=== PATIENT | male | born 1970 | race Two or more races ===

== ENCOUNTER 2017-04-02 10:26 | Emergency (ER) | payer MEDICARE ==
[~2017-04-02] VITALS: Ht 172.7 cm; Wt 85.6 kg
[2017-04-02] MEDS ORDERED: ALBUTEROL/IPRATROPIUM 2.5MG/0.5MG, 3 ML NPPB ONE (13:00)
[2017-04-02] MEDS ORDERED: SODIUM CHLORIDE FLUSH 10ML SYR IVF ONE (13:00)
[2017-04-02] MEDS ORDERED: SODIUM CHLORIDE 0.9% 1,000ML IVBOLUS ONE (13:00)
[2017-04-02 13:17] LABS: BASOPHILS # (AUTO) 0.06 x10^3/uL (0-0.1); BASOPHILS % (AUTO) 1 % (0-1); EOSINOPHILS # (AUTO) 0.18 x10^3/uL (0-0.4); EOSINOPHILS % (AUTO) 3 % (1-7); LYMPHOCYTES # (AUTO) 1.75 x10^3/uL (1-3.4); LYMPHOCYTES % (AUTO) 25 % (22-44); MD NO; MEAN CORPUSCULAR HEMOGLOBIN 31.6 pg (27.5-34.5); MEAN CORPUSCULAR HGB CONC 34.2 g/dL (33.2-36.2); MEAN CORPUSCULAR VOLUME 92.5 fL (81-97); MEAN PLATELET VOLUME 6.9 fL (7.4-10.4); MONOCYTES # (AUTO) 0.43 x10^3/uL (0.2-0.8); MONOCYTES % (AUTO) 6 % (2-9); NEUTROPHILS # (AUTO) 4.74 x10^3/uL (1.8-6.8); NEUTROPHILS % (AUTO) 66 % (42-75); PLATELET COUNT 561 x10^3/uL (130-400); RED BLOOD COUNT 4.11 x10^6/uL (4.38-5.82); RED CELL DISTRIBUTION WIDTH 13.1 % (9.4-14.8)
[2017-04-02 13:29] LABS: ALANINE AMINOTRANSFERASE 108 U/L (12-78); ALBUMIN 2.5 g/dL (3.4-5.0); ANION GAP 8 mmol/L (5-15); CALCIUM 8.6 mg/dL (8.5-10.1); CHLORIDE 101 mmol/L (98-107); CREATININE 0.72 mg/dL (0.7-1.3)
[2017-04-02 13:31] LABS: ALKALINE PHOSPHATASE 56 U/L (45-117); BILIRUBIN,TOTAL 0.9 mg/dL (0.2-1.0); TOTAL PROTEIN 7.7 g/dL (6.4-8.2)
[2017-04-02] MEDS ORDERED: ALBUTEROL/IPRATROPIUM 2.5MG/0.5MG, 3 ML ONE (14:03)
[2017-04-02 14:16] LABS: RAPID INFLUENZA A Negative (Negative); RAPID INFLUENZA B Negative (Negative)
[2017-04-02 14:20] VITALS: BP 151/96
== END 2017-04-02 15:57 | disposition home or self-care (01) ==
LOC: ED 14:12
DX: J98.01 Acute bronchospasm (principal); J45.909 Unspecified asthma, uncomplicated; E11.9 Type 2 diabetes mellitus without complications
CPT/HCPCS: 36415; 71010; 80053; 85025; 87400; 93005; 96360; 96361; 99285; J7030

== ENCOUNTER 2017-05-19 06:09 | Emergency (ER) | payer MEDICARE ==
[~2017-05-19] VITALS: Ht 172.7 cm; Wt 86.9 kg
[2017-05-19] MEDS ORDERED: INSU100C5 SQ-INSULIN (06:53)
[2017-05-19 07:25] LABS: BASOPHILS # (AUTO) 0.04 x10^3/uL (0-0.1); BASOPHILS % (AUTO) 1 % (0-1); EOSINOPHILS # (AUTO) 0.25 x10^3/uL (0-0.4); EOSINOPHILS % (AUTO) 4 % (1-7); LYMPHOCYTES # (AUTO) 1.43 x10^3/uL (1-3.4); LYMPHOCYTES % (AUTO) 24 % (22-44); MD NO; MEAN CORPUSCULAR HEMOGLOBIN 32.1 pg (27.5-34.5); MEAN CORPUSCULAR HGB CONC 34.6 g/dL (33.2-36.2); MEAN CORPUSCULAR VOLUME 92.9 fL (81-97); MEAN PLATELET VOLUME 8.2 fL (7.4-10.4); MONOCYTES # (AUTO) 0.35 x10^3/uL (0.2-0.8); MONOCYTES % (AUTO) 6 % (2-9); NEUTROPHILS # (AUTO) 3.89 x10^3/uL (1.8-6.8); NEUTROPHILS % (AUTO) 65 % (42-75); PLATELET COUNT 239 x10^3/uL (130-400); RED CELL DISTRIBUTION WIDTH 14.2 % (9.4-14.8)
[2017-05-19 07:26] LABS: ANION GAP 12 mmol/L (5-15); CALCIUM 8.1 mg/dL (8.5-10.1); CHLORIDE 99 mmol/L (98-107); CREATININE 0.82 mg/dL (0.7-1.3)
[2017-05-19 07:27] LABS: ALANINE AMINOTRANSFERASE 32 U/L (12-78); ALBUMIN 3.2 g/dL (3.4-5.0)
[2017-05-19 07:29] LABS: ALKALINE PHOSPHATASE 62 U/L (45-117); BILIRUBIN,TOTAL 0.6 mg/dL (0.2-1.0); TOTAL PROTEIN 8.3 g/dL (6.4-8.2)
[2017-05-19] MEDS ORDERED: SODIUM CHLORIDE FLUSH 10ML SYR IVF ONE (07:30)
[2017-05-19] MEDS ORDERED: SODIUM CHLORIDE 0.9% 1,000ML IVBOLUS ONE (07:30)
[2017-05-19 08:16] LABS: MICROSCOPIC AUTO
[2017-05-19 08:18] LABS: ACETONE, SERUM Trace (10mg/dL) mg/dL (Negative)
[2017-05-19 08:25] LABS: CULTURE INDICATED? NO
[2017-05-19 09:31] VITALS: BP 148/98
== END 2017-05-19 10:33 | disposition home or self-care (01) ==
LOC: ED 07:22
DX: E10.65 Type 1 diabetes mellitus with hyperglycemia (principal); F10.220 Alcohol dependence with intoxication, uncomplicated; K85.90 Acute pancreatitis without necrosis or infection, unspecified; F17.210 Nicotine dependence, cigarettes, uncomplicated; J45.909 Unspecified asthma, uncomplicated; R82.99 Other abnormal findings in urine
CPT/HCPCS: 36415; 80053; 80307; 81001; 82010; 82800; 82962; 83690; 85025; 87086; 93005; 96360; 99285; J7030

== ENCOUNTER 2017-06-11 22:50 | Emergency (ER) | payer MEDICARE ==
[~2017-06-11] VITALS: Ht 172.7 cm; Wt 86.0 kg
[~2017-06-11 22:50] MED LIST: INSU100C5 SQ-INSULIN
[2017-06-11 23:12] LABS: PH, VENOUS 7.426 pH (7.320-7.420)
[2017-06-11 23:18] LABS: BASOPHILS % (AUTO) 2 % (0-1); EOSINOPHILS # (AUTO) 0.33 x10^3/uL (0-0.4); EOSINOPHILS % (AUTO) 8 % (1-7); LYMPHOCYTES # (AUTO) 1.79 x10^3/uL (1-3.4); LYMPHOCYTES % (AUTO) 43 % (22-44); MD NO; MEAN CORPUSCULAR HEMOGLOBIN 32.6 pg (27.5-34.5); MEAN CORPUSCULAR HGB CONC 34.3 g/dL (33.2-36.2); MEAN CORPUSCULAR VOLUME 95.1 fL (81-97); MONOCYTES # (AUTO) 0.36 x10^3/uL (0.2-0.8); MONOCYTES % (AUTO) 9 % (2-9); NEUTROPHILS # (AUTO) 1.58 x10^3/uL (1.8-6.8); NEUTROPHILS % (AUTO) 38 % (42-75); PLATELET COUNT 213 x10^3/uL (130-400); RED BLOOD COUNT 4.09 x10^6/uL (4.38-5.82); RED CELL DISTRIBUTION WIDTH 14.9 % (9.4-14.8)
[2017-06-11 23:22] LABS: ACETONE, SERUM Small (20mg/dL) mg/dL (Negative); INTERNATIONAL NORMALIZED RATIO 1.08 (0.93-1.1); PROTHROMBIN TIME 11.2 Seconds (9.6-11.5)
[2017-06-11 23:24] LABS: ALANINE AMINOTRANSFERASE 52 U/L (12-78); ALBUMIN 3.1 g/dL (3.4-5.0); ANION GAP 12 mmol/L (5-15); CALCIUM 8.1 mg/dL (8.5-10.1); CHLORIDE 100 mmol/L (98-107); CREATININE 0.83 mg/dL (0.7-1.3)
[2017-06-11 23:27] LABS: ALKALINE PHOSPHATASE 63 U/L (45-117); BILIRUBIN,TOTAL 0.7 mg/dL (0.2-1.0); TOTAL PROTEIN 8.7 g/dL (6.4-8.2)
[2017-06-12 02:33] VITALS: BP 128/84
== END 2017-06-12 03:45 | disposition home or self-care (01) ==
LOC: ED 22:57
DX: R04.0 Epistaxis (principal); F10.120 Alcohol abuse with intoxication, uncomplicated; E11.9 Type 2 diabetes mellitus without complications; Z79.4 Long term (current) use of insulin; Y90.9 Presence of alcohol in blood, level not specified
CPT/HCPCS: 36415; 80053; 82010; 82803; 85025; 85610; 85730; 93005; 99285

== ENCOUNTER 2017-10-23 09:03 | Inpatient (IN) | payer MEDICARE, MEDICAID ==
[~2017-10-23] VITALS: Ht 172.7 cm; Wt 78.3 kg
[2017-10-23 09:46] LABS: ALANINE AMINOTRANSFERASE 70 U/L (12-78); ALBUMIN 3.1 g/dL (3.4-5.0); ANION GAP 7 mmol/L (5-15); CALCIUM 7.8 mg/dL (8.5-10.1); CHLORIDE 104 mmol/L (98-107); CREATININE 0.92 mg/dL (0.7-1.3)
[2017-10-23 09:48] LABS: ALKALINE PHOSPHATASE 59 U/L (45-117); BILIRUBIN,TOTAL 0.5 mg/dL (0.2-1.0); TOTAL PROTEIN 7.2 g/dL (6.4-8.2)
[2017-10-23 10:06] LABS: ACETONE, SERUM Negative (Negative)
[2017-10-23] MEDS ORDERED: INSULIN REGULAR 100 UNITS/ML, 3ML VIAL IVPush ONE (10:30)
[2017-10-23] MEDS ORDERED: INSULIN REGULAR 100 UNITS/ML, 3ML VIAL ONE (10:34)
[2017-10-23 10:37] LABS: BASOPHILS # (AUTO) 0.08 x10^3/uL (0-0.1); BASOPHILS % (AUTO) 2 % (0-1); EOSINOPHILS # (AUTO) 0.28 x10^3/uL (0-0.4); EOSINOPHILS % (AUTO) 7 % (1-7); LYMPHOCYTES # (AUTO) 1.89 x10^3/uL (1-3.4); LYMPHOCYTES % (AUTO) 49 % (22-44); MD NO; MEAN CORPUSCULAR HEMOGLOBIN 33.2 pg (27.5-34.5); MEAN CORPUSCULAR HGB CONC 34.8 g/dL (33.2-36.2); MEAN CORPUSCULAR VOLUME 95.5 fL (81-97); MONOCYTES # (AUTO) 0.28 x10^3/uL (0.2-0.8); MONOCYTES % (AUTO) 7 % (2-9); NEUTROPHILS # (AUTO) 1.34 x10^3/uL (1.8-6.8); NEUTROPHILS % (AUTO) 35 % (42-75); PLATELET COUNT 174 x10^3/uL (130-400); RED BLOOD COUNT 3.85 x10^6/uL (4.38-5.82)
[2017-10-23] MEDS: SODIUM CHLORIDE 0.9% 1,000 ML IV SCH (12:15)
[2017-10-23] MEDS ORDERED: POLYETHYLENE GLYCOL 17 GM PACKET PO PRN (12:30)
[2017-10-23] MEDS ORDERED: ONDANSETRON ODT 4 MG PO PRN (12:30)
[2017-10-23] MEDS ORDERED: GLUCAGON 1 MG IM PRN (12:30)
[2017-10-23] MEDS ORDERED: LORazepam 1MG TABLET PO PRN ×3 (12:30)
[2017-10-23] MEDS: NICOTINE 21 MG/24 HR PATCH.TD24 TD SCH (12:30)
[2017-10-23] MEDS ORDERED: POTASSIUM CHLORIDE 20 MEQ, MAGNESIUM SULFATE 1 GM, MVI ADULT 10 ML, THIAMINE 200 MG, FO... IV SCH (12:30)
[2017-10-23] MEDS: INSULIN LISPRO 100 UNITS/ML, PEN SQ-INSULIN SCH ×3 (12:30→20:04)
[2017-10-23] MEDS ORDERED: DEXTROSE 4 GM TAB.CHEW PO PRN (12:30)
[2017-10-23] MEDS: ENOXAPARIN 40 MG/0.4 ML SQ SCH (12:30)
[2017-10-23] MEDS ORDERED: LORazepam 2 MG/ML, 1ML IV PRN ×4 (12:30)
[2017-10-23] MEDS ORDERED: LORazepam 0.5MG TABLET PO PRN (12:30)
[2017-10-23] MEDS ORDERED: DOCUSATE 100 MG CAPSULE PO PRN (12:30)
[2017-10-23] MEDS ORDERED: morphine SULFATE 10 MG/ML, 1ML IVPush PRN (12:30)
[2017-10-23] MEDS ORDERED: ACETAMINOPHEN 325 MG TABLET PO PRN (12:30)
[2017-10-23] MEDS ORDERED: DEXTROSE 50%, 50ML SYRINGE IVPush PRN (12:30)
[2017-10-23 13:16] LABS: HEMOGLOBIN A1C 9.5 % (4.2-6.3)
[2017-10-23 14:36] VITALS: BP 132/87
[2017-10-23 20:30] VITALS: BP 151/93
[2017-10-23] MEDS: INSULIN GLARGINE 100 UNITS/ML, PEN SQ-INSULIN SCH (21:00)
[2017-10-23] MEDS: SODIUM CHLORIDE FLUSH 10ML SYR IVF SCH (21:00)
[2017-10-23 21:45] LABS: MICROSCOPIC INDICATED
[2017-10-23 21:57] LABS: CULTURE INDICATED? NO
[2017-10-24] MEDS: SODIUM CHLORIDE 0.9% 1,000 ML IV SCH ×2 (01:50→07:55)
[2017-10-24 01:51] VITALS: BP 157/99
[2017-10-24 06:03] LABS: BASOPHILS # (AUTO) 0.05 x10^3/uL (0-0.1); BASOPHILS % (AUTO) 1 % (0-1); EOSINOPHILS # (AUTO) 0.13 x10^3/uL (0-0.4); EOSINOPHILS % (AUTO) 3 % (1-7); LYMPHOCYTES # (AUTO) 0.93 x10^3/uL (1-3.4); LYMPHOCYTES % (AUTO) 23 % (22-44); MD NO; MEAN CORPUSCULAR HEMOGLOBIN 33.2 pg (27.5-34.5); MEAN CORPUSCULAR HGB CONC 34.9 g/dL (33.2-36.2); MEAN CORPUSCULAR VOLUME 95.2 fL (81-97); MONOCYTES # (AUTO) 0.23 x10^3/uL (0.2-0.8); MONOCYTES % (AUTO) 6 % (2-9); NEUTROPHILS # (AUTO) 2.77 x10^3/uL (1.8-6.8); NEUTROPHILS % (AUTO) 68 % (42-75); PLATELET COUNT 167 x10^3/uL (130-400); RED BLOOD COUNT 4.01 x10^6/uL (4.38-5.82); RED CELL DISTRIBUTION WIDTH 13.6 % (9.4-14.8)
[2017-10-24 06:17] LABS: CHLORIDE 102 mmol/L (98-107)
[2017-10-24 06:33] LABS: ANION GAP 16 mmol/L (5-15); CALCIUM 8.1 mg/dL (8.5-10.1); CHOL/HDL RATIO 3.8; CHOLESTEROL, TOTAL 278 mg/dL (140-239); CREATININE 0.61 mg/dL (0.7-1.3); HDL CHOL % 26 % (26-37); HDL CHOLESTEROL (DIRECT) 73 mg/dL (40-60); LDL CHOLESTEROL,CALCULATED 178 mg/dL (54-169); LDL/HDL RATIO 2.4 (0.5-3.0); TRIGLYCERIDES 134 mg/dL (50-200); VLDL CHOLESTEROL 27 mg/dL (0-25)
[2017-10-24] MEDS: INSULIN LISPRO 100 UNITS/ML, PEN SQ-INSULIN SCH ×4 (07:00→21:26)
[2017-10-24 07:11] VITALS: BP 156/89
[2017-10-24] MEDS ORDERED: PANTOPRAZOLE 40 MG IV IVPush SCH (07:30)
[2017-10-24] MEDS: SODIUM CHLORIDE FLUSH 10ML SYR IVF SCH ×2 (08:00→21:00)
[2017-10-24] MEDS: MVI ADULT IV SCH (12:30)
[2017-10-24] MEDS: FOLIC ACID IV SCH (12:30)
[2017-10-24] MEDS: MAGNESIUM SULFATE IV SCH (12:30)
[2017-10-24] MEDS: THIAMINE IV SCH (12:30)
[2017-10-24] MEDS: NICOTINE 21 MG/24 HR PATCH.TD24 TD SCH (12:30)
[2017-10-24] MEDS ORDERED: MAGNESIUM SULFATE PMX 4GM/100M 100 ML IV ONE (12:30)
[2017-10-24] MEDS: [UNRECOGNIZED DRUG - OTHER] IV SCH (12:30)
[2017-10-24 12:47] VITALS: BP 165/89
[2017-10-24] MEDS: ENOXAPARIN 40 MG/0.4 ML SQ SCH (13:36)
[2017-10-24] MEDS: MAGNESIUM SULFATE 1 GM, MVI ADULT 10 ML, THIAMINE 200 MG, FOLIC ACID 1 MG in SODIUM CHL... IV SCH (15:42)
[2017-10-24 19:09] VITALS: BP 166/106
[2017-10-24 20:00] VITALS: BP 159/95
[2017-10-24] MEDS: INSULIN GLARGINE 100 UNITS/ML, PEN SQ-INSULIN SCH (21:00)
[2017-10-24] MEDS: PANTOPRAZOLE 40 MG IV IVPush SCH (21:26)
[2017-10-24] MEDS: ONDANSETRON 2MG/ML, 2ML IVPush PRN (21:27)
[2017-10-25 01:11] VITALS: BP 160/97
[2017-10-25 05:34] LABS: BASOPHILS # (AUTO) 0.06 x10^3/uL (0-0.1); BASOPHILS % (AUTO) 1 % (0-1); EOSINOPHILS # (AUTO) 0.27 x10^3/uL (0-0.4); EOSINOPHILS % (AUTO) 5 % (1-7); LYMPHOCYTES # (AUTO) 1.21 x10^3/uL (1-3.4); LYMPHOCYTES % (AUTO) 25 % (22-44); MD NO; MEAN CORPUSCULAR HEMOGLOBIN 32.7 pg (27.5-34.5); MEAN CORPUSCULAR HGB CONC 34.4 g/dL (33.2-36.2); MEAN CORPUSCULAR VOLUME 95.1 fL (81-97); MEAN PLATELET VOLUME 7.9 fL (7.4-10.4); MONOCYTES # (AUTO) 0.32 x10^3/uL (0.2-0.8); MONOCYTES % (AUTO) 6 % (2-9); NEUTROPHILS # (AUTO) 3.07 x10^3/uL (1.8-6.8); NEUTROPHILS % (AUTO) 63 % (42-75); PLATELET COUNT 165 x10^3/uL (130-400); RED BLOOD COUNT 4.23 x10^6/uL (4.38-5.82); RED CELL DISTRIBUTION WIDTH 13.7 % (9.4-14.8)
[2017-10-25 05:48] LABS: CHLORIDE 98 mmol/L (98-107)
[2017-10-25 05:56] LABS: ALANINE AMINOTRANSFERASE 47 U/L (12-78); ALBUMIN 3.1 g/dL (3.4-5.0); ALKALINE PHOSPHATASE 61 U/L (45-117); ANION GAP 14 mmol/L (5-15); BILIRUBIN,TOTAL 1.5 mg/dL (0.2-1.0); CALCIUM 8.3 mg/dL (8.5-10.1); CREATININE 0.75 mg/dL (0.7-1.3); TOTAL PROTEIN 7.5 g/dL (6.4-8.2)
[2017-10-25 07:46] VITALS: BP 146/90
[2017-10-25] MEDS: INSULIN LISPRO 100 UNITS/ML, PEN SQ-INSULIN SCH ×4 (08:21→20:15)
[2017-10-25] MEDS: PANTOPRAZOLE 40 MG IV IVPush SCH (08:21)
[2017-10-25] MEDS: ONDANSETRON 2MG/ML, 2ML IVPush PRN (08:21)
[2017-10-25] MEDS: SODIUM CHLORIDE FLUSH 10ML SYR IVF SCH ×2 (08:23→20:15)
[2017-10-25] MEDS: MVI ADULT IV SCH (11:33)
[2017-10-25] MEDS: MAGNESIUM SULFATE IV SCH (11:33)
[2017-10-25] MEDS: THIAMINE IV SCH (11:33)
[2017-10-25] MEDS: FOLIC ACID IV SCH (11:33)
[2017-10-25] MEDS: [UNRECOGNIZED DRUG - OTHER] IV SCH (11:33)
[2017-10-25] MEDS ORDERED: SODIUM CHLORIDE 0.9% 1,000 ML IV SCH (12:15)
[2017-10-25] MEDS: NICOTINE 21 MG/24 HR PATCH.TD24 TD SCH (12:30)
[2017-10-25] MEDS: MAGNESIUM SULFATE 1 GM, MVI ADULT 10 ML, THIAMINE 200 MG, FOLIC ACID 1 MG in SODIUM CHL... IV SCH (13:19)
[2017-10-25] MEDS: ENOXAPARIN 40 MG/0.4 ML SQ SCH (13:20)
[2017-10-25 14:03] VITALS: BP 164/105
[2017-10-25 17:00] VITALS: BP 130/100
[2017-10-25] MEDS ORDERED: ENALAPRILAT 1.25 MG/ML, 2ML IV PRN (17:00)
[2017-10-25 19:31] VITALS: BP 145/96
[2017-10-25] MEDS: PANTOPROZOLE 40MG TABLET PO SCH (20:13)
[2017-10-25] MEDS: INSULIN GLARGINE 100 UNITS/ML, PEN SQ-INSULIN SCH (20:23)
[2017-10-26 00:58] VITALS: BP 145/92
[2017-10-26 05:06] LABS: ALANINE AMINOTRANSFERASE 44 U/L (12-78); ALBUMIN 2.8 g/dL (3.4-5.0); ANION GAP 7 mmol/L (5-15); CALCIUM 8.3 mg/dL (8.5-10.1); CHLORIDE 102 mmol/L (98-107); CREATININE 0.85 mg/dL (0.7-1.3)
[2017-10-26 05:08] LABS: ALKALINE PHOSPHATASE 56 U/L (45-117); BILIRUBIN,TOTAL 1.2 mg/dL (0.2-1.0); TOTAL PROTEIN 7.1 g/dL (6.4-8.2)
[2017-10-26] MEDS: INSULIN LISPRO 100 UNITS/ML, PEN SQ-INSULIN SCH ×2 (07:00→11:49)
[2017-10-26 07:04] VITALS: BP 125/85
[2017-10-26] MEDS: SODIUM CHLORIDE FLUSH 10ML SYR IVF SCH (08:54)
[2017-10-26] MEDS: PANTOPROZOLE 40MG TABLET PO SCH (08:54)
[2017-10-26] MEDS: ENOXAPARIN 40 MG/0.4 ML SQ SCH (11:49)
[2017-10-26] MEDS: NICOTINE 21 MG/24 HR PATCH.TD24 TD SCH (11:49)
[2017-10-26 12:04] VITALS: BP 126/86
[2017-10-26] MEDS ORDERED: INSU100I28 SQ (14:27)
[2017-10-26] MEDS ORDERED: OMEP-110 PO (14:27)
[2017-10-26] MEDS ORDERED: ATOR20TA PO (14:29)
[2017-10-26] MEDS ORDERED: INSU100C5 SQ-INSULIN (14:32)
== END 2017-10-26 15:37 | disposition home or self-care (01) | DRG 896 ==
LOC: ED 11:41 → EDIP 12:14 → 4EST 13:00
PROVIDERS: ADMIT Internal Medicine; ATTEND Internal Medicine
DX: F10.239 Alcohol dependence with withdrawal, unspecified (principal); K85.20 Alcohol induced acute pancreatitis without necrosis or infection; E44.1 Mild protein-calorie malnutrition; E87.2 Acidosis; D64.9 Anemia, unspecified; E11.65 Type 2 diabetes mellitus with hyperglycemia; E78.5 Hyperlipidemia, unspecified; E83.42 Hypomagnesemia; F10.229 Alcohol dependence with intoxication, unspecified; F17.210 Nicotine dependence, cigarettes, uncomplicated; J45.909 Unspecified asthma, uncomplicated; Z79.4 Long term (current) use of insulin; Z91.14 Patient's other noncompliance with medication regimen; Z68.26 Body mass index [BMI] 26.0-26.9, adult
CPT/HCPCS: 36415; 80048; 80053; 80061; 80307; 81001; 82010; 82800; 82962; 83036; 83690; 83735; 84100; 85025; 96374; J1650; J2405; J3411; J3475; J3480; Q0162; C9113; J1815; J7030

== ENCOUNTER 2018-03-09 13:13 | Emergency (ER) | payer MEDICARE, MEDICAID ==
[~2018-03-09] VITALS: Ht 172.7 cm; Wt 85.0 kg
[~2018-03-09 13:13] MED LIST changes: +ATOR20TA PO; +INSU100I28 SQ; +OMEP-110 PO
[2018-03-09] MEDS ORDERED: SODIUM CHLORIDE 0.9% 1,000ML IVBOLUS ONE (13:30)
[2018-03-09 13:35] LABS: BASOPHILS # (AUTO) 0.09 x10^3/uL (0-0.1); BASOPHILS % (AUTO) 2 % (0-1); EOSINOPHILS # (AUTO) 0.34 x10^3/uL (0-0.4); EOSINOPHILS % (AUTO) 6 % (1-7); LYMPHOCYTES # (AUTO) 2.46 x10^3/uL (1-3.4); LYMPHOCYTES % (AUTO) 43 % (22-44); MD NO; MEAN CORPUSCULAR HEMOGLOBIN 32.9 pg (27.5-34.5); MEAN PLATELET VOLUME 9.2 fL (7.4-10.4); MONOCYTES # (AUTO) 0.27 x10^3/uL (0.2-0.8); MONOCYTES % (AUTO) 5 % (2-9); NEUTROPHILS # (AUTO) 2.55 x10^3/uL (1.8-6.8); NEUTROPHILS % (AUTO) 45 % (42-75); PLATELET COUNT 210 x10^3/uL (130-400); RED BLOOD COUNT 3.95 x10^6/uL (4.38-5.82); RED CELL DISTRIBUTION WIDTH 12.5 % (9.4-14.8)
[2018-03-09 13:37] LABS: PH, VENOUS 7.252 pH (7.320-7.420)
[2018-03-09 13:48] LABS: ALANINE AMINOTRANSFERASE 55 U/L (12-78); ALBUMIN 3.5 g/dL (3.4-5.0); ANION GAP 13 mmol/L (5-15); CALCIUM 8.5 mg/dL (8.5-10.1); CHLORIDE 98 mmol/L (98-107); CREATININE 1.05 mg/dL (0.7-1.3)
[2018-03-09 13:50] LABS: ALKALINE PHOSPHATASE 68 U/L (45-117); BILIRUBIN,TOTAL 0.3 mg/dL (0.2-1.0); TOTAL PROTEIN 7.7 g/dL (6.4-8.2)
[2018-03-09 13:51] LABS: MICROSCOPIC NOT IND
[2018-03-09] MEDS ORDERED: INSULIN REGULAR 100 UNITS/ML, 3ML VIAL ONE ×2 (14:15→15:53)
[2018-03-09 14:16] LABS: ACETONE, SERUM Trace (10mg/dL) mg/dL (Negative)
[2018-03-09] MEDS ORDERED: INSULIN REGULAR 100 UNITS/ML, 3ML VIAL IVPush ONE (14:30)
[2018-03-09 15:12] LABS: AMPHETAMINE SCREEN, URINE Negative (Negative); BARBITURATE SCREEN, URINE Negative (Negative); BENZODIAZEPINE SCREEN, URINE Negative (Negative); CANNABINOID SCREEN, URINE Negative (Negative); COCAINE SCREEN, URINE Negative (Negative); METHADONE SCREEN, URINE Negative (Negative); OPIATE SCREEN, URINE Negative (Negative)
[2018-03-09] MEDS ORDERED: INSULIN REGULAR 100 UNITS/ML, 3ML VIAL SQ-INSULIN ONE (15:30)
[2018-03-09 19:48] VITALS: BP 103/72
== END 2018-03-09 20:00 | disposition home or self-care (01) ==
LOC: ED 15:25
DX: E11.65 Type 2 diabetes mellitus with hyperglycemia (principal); J45.909 Unspecified asthma, uncomplicated; F10.121 Alcohol abuse with intoxication delirium
CPT/HCPCS: 36415; 80053; 80307; 81003; 82010; 82803; 82962; 83930; 85025; 93005; 96372; 96374; 99284; J7030

== ENCOUNTER 2018-05-03 08:57 | Emergency (ER) | payer MEDICARE, MEDICAID ==
[~2018-05-03] VITALS: Ht 172.7 cm; Wt 66.5 kg
--- NOTE | 2018-05-03 09:30 | NUR ---
assumed care of pt. attempted to enter room to assess pt, pt in RAD
--- NOTE | 2018-05-03 09:40 | NUR ---
pt returned to room. lab at bedside to draw. pt reports R hip pain for 6 weeks, after a fall "around zoila time". pt has no visible injuries and is ambulatory. reported to triage that he had a cut on his foot. ptsock have been removed. both of his feel are peeling on the bottom but no open sores or bleeding or drainage. pt reports that he "misplaced" his meds about 3 weeks ago. pt reports that he is a daily heavy drinkerbut deneis ETOH consumption this AM. no tremulous activity noted. denies hx of withdrawl seizures. warm blankets given. positioning for comfort. updated on POC
[2018-05-03 09:51] LABS: BASOPHILS # (AUTO) 0.06 x10^3/uL (0-0.1); BASOPHILS % (AUTO) 1 % (0-1); EOSINOPHILS # (AUTO) 0.17 x10^3/uL (0-0.4); EOSINOPHILS % (AUTO) 3 % (1-7); LYMPHOCYTES # (AUTO) 0.93 x10^3/uL (1-3.4); LYMPHOCYTES % (AUTO) 17 % (22-44); MD NO; MEAN CORPUSCULAR HEMOGLOBIN 33.8 pg (27.5-34.5); MEAN CORPUSCULAR VOLUME 96.6 fL (81-97); MEAN PLATELET VOLUME 9.2 fL (7.4-10.4); MONOCYTES # (AUTO) 0.26 x10^3/uL (0.2-0.8); MONOCYTES % (AUTO) 5 % (2-9); NEUTROPHILS # (AUTO) 4.17 x10^3/uL (1.8-6.8); NEUTROPHILS % (AUTO) 75 % (42-75); PLATELET COUNT 218 x10^3/uL (130-400); RED BLOOD COUNT 4.01 x10^6/uL (4.38-5.82); RED CELL DISTRIBUTION WIDTH 14.5 % (9.4-14.8)
[2018-05-03 09:52] LABS: PH, VENOUS 7.362 pH (7.320-7.420)
[2018-05-03 09:53] LABS: FIO2 RA %
[2018-05-03 10:03] LABS: ALANINE AMINOTRANSFERASE 34 U/L (12-78); ALBUMIN 3.6 g/dL (3.4-5.0); ANION GAP 13 mmol/L (5-15); CALCIUM 9.3 mg/dL (8.5-10.1); CHLORIDE 90 mmol/L (98-107); CREATININE 1.04 mg/dL (0.7-1.3)
[2018-05-03 10:06] LABS: ALKALINE PHOSPHATASE 97 U/L (45-117); BILIRUBIN,TOTAL 1.1 mg/dL (0.2-1.0); TOTAL PROTEIN 8.4 g/dL (6.4-8.2)
--- NOTE | 2018-05-03 10:15 | NUR ---
urinal given per request. pt has been given warm blankets and socks
[2018-05-03] MEDS ORDERED: SODIUM CHLORIDE 0.9% 1,000ML IVBOLUS ONE (10:30)
[2018-05-03 10:36] LABS: ACETONE, SERUM Moderate(40mg/dL) mg/dL (Negative)
--- NOTE | 2018-05-03 11:25 | NUR ---
no changes. pt resting in position of comfort. no family at bedside. awaiting test results
--- NOTE | 2018-05-03 11:35 | NUR ---
pt to have IV and fluid. pt updated on POC
--- NOTE | 2018-05-03 11:54 | NUR ---
report to Vivian JOHNSON for lunch
--- NOTE | 2018-05-03 12:11 | NUR ---
BRIAN RN NOTE: PATIENT IV ESTABLISHED. PLAN TO RECHECK FS AFTER 1000 ML INFUSED
--- NOTE | 2018-05-03 12:30 | NUR ---
pt sleeping. IV infusing. no apparent distress
[2018-05-03] MEDS ORDERED: INSULIN REGULAR 100 UNITS/ML, 3ML VIAL SQ-INSULIN ONE ×2 (13:30→15:30)
[2018-05-03] MEDS ORDERED: INSULIN REGULAR 100 UNITS/ML, 3ML VIAL ONE ×2 (14:33→15:24)
--- NOTE | 2018-05-03 16:38 | NUR ---
repeat FSBS checked. 209. Dr Booker notified. pt ambula;tory in room and has no c/o. awaiting D/c instructions
[2018-05-03 17:13] VITALS: BP 137/97
== END 2018-05-03 17:17 | disposition home or self-care (01) ==
LOC: ED 09:32
DX: E10.65 Type 1 diabetes mellitus with hyperglycemia (principal); T69.021A Immersion foot, right foot, initial encounter; T69.022A Immersion foot, left foot, initial encounter; Z72.9 Problem related to lifestyle, unspecified; J45.909 Unspecified asthma, uncomplicated
CPT/HCPCS: 36415; 71045; 73502; 80053; 82010; 82803; 82962; 85025; 93005; 96372; 99284; J7030

== ENCOUNTER 2018-08-10 22:04 | Emergency (ER) | payer MEDICARE, MEDICAID ==
--- NOTE | 2018-08-10 22:05 | NUR ---
BIB [facility], PT FOUND 'STUMBLING' [place], CAUGHT AND LOWERED TO GROUND. EMS CALLED BY BYSTANDERS. PT MOSTLY DROWSY, ARROUSABLE TO PHYSICAL STIM. RA ON SCENE 87%; FSBS FOR [facility], "HIGH". PT ANSWERS SOME QUESTIONS WITH YES OR NO THEN FALLS QUICKLY TO SLEEP. ANSWERS "YES" TO DM HX. AIRWAY PATENT, SPO2 >90% ON 2L BY NC. NO EMESIS NOTED. NO OPEN WOUNDS NOTED. BP/SPO2/ECG MONITORING IN PLACE. NSR ON MONITOR. EKG COMPLETED UPON ARRIVAL. 1L NS BOLUS RUNNING.
[2018-08-10] MEDS ORDERED: SODIUM CHLORIDE FLUSH 10ML SYR IVF ONE (22:30)
[2018-08-10] MEDS ORDERED: SODIUM CHLORIDE 0.9% 1,000ML IVBOLUS ONE ×2 (22:30→23:30)
--- NOTE | 2018-08-10 22:52 | NUR ---
PT ATTEMPTING TO GET OUT OF BED. PT ASSISTED BACK TO LAYING FLAT IN GURNEY. PT IMMEDIATELY BACK TO RESTING. STRAIGHT CATH COMPLETED PER ERP, PT TOLERATED WO DIFFICULTY. UA COLLECTED AND SENT. LAB IN TO DRAW VBG AND AMMONIA.
--- NOTE | 2018-08-10 22:54 | NUR ---
PT TO CT
[2018-08-10 22:57] LABS: O2 FLOW 2 L/min; PH, VENOUS 7.318 pH (7.320-7.420)
[2018-08-10 23:07] LABS: BASOPHILS # (AUTO) 0.06 x10^3/uL (0-0.1); BASOPHILS % (AUTO) 1 % (0-1); EOSINOPHILS # (AUTO) 0.18 x10^3/uL (0-0.4); EOSINOPHILS % (AUTO) 4 % (1-7); LYMPHOCYTES # (AUTO) 2.36 x10^3/uL (1-3.4); LYMPHOCYTES % (AUTO) 52 % (22-44); MD NO; MEAN CORPUSCULAR HGB CONC 32.1 g/dL (33.2-36.2); MEAN CORPUSCULAR VOLUME 96.5 fL (81-97); MEAN PLATELET VOLUME 8.9 fL (7.4-10.4); MONOCYTES # (AUTO) 0.35 x10^3/uL (0.2-0.8); MONOCYTES % (AUTO) 8 % (2-9); NEUTROPHILS # (AUTO) 1.54 x10^3/uL (1.8-6.8); NEUTROPHILS % (AUTO) 34 % (42-75); PLATELET COUNT 202 x10^3/uL (130-400); RED BLOOD COUNT 3.52 x10^6/uL (4.38-5.82); RED CELL DISTRIBUTION WIDTH 12.9 % (9.4-14.8)
[2018-08-10 23:10] LABS: MICROSCOPIC AUTO
[2018-08-10 23:12] LABS: CULTURE INDICATED? NO
[2018-08-10 23:15] LABS: ALANINE AMINOTRANSFERASE 37 U/L (12-78); ANION GAP 14 mmol/L (5-15); CALCIUM 7.6 mg/dL (8.5-10.1); CHLORIDE 98 mmol/L (98-107); CREATININE 1.01 mg/dL (0.7-1.3)
[2018-08-10 23:17] LABS: AMPHETAMINE SCREEN, URINE Negative (Negative); BARBITURATE SCREEN, URINE Negative (Negative); BENZODIAZEPINE SCREEN, URINE Negative (Negative); CANNABINOID SCREEN, URINE Negative (Negative); COCAINE SCREEN, URINE Negative (Negative); METHADONE SCREEN, URINE Negative (Negative); OPIATE SCREEN, URINE Negative (Negative)
[2018-08-10 23:24] LABS: ALKALINE PHOSPHATASE 63 U/L (45-117); BILIRUBIN,TOTAL 0.2 mg/dL (0.2-1.0); TOTAL PROTEIN 6.6 g/dL (6.4-8.2)
--- NOTE | 2018-08-10 23:30 | NUR ---
CRITICAL BG RECEIVED. SECOND LITER NS BOLUS HUNG PER ERP ORDER
[2018-08-11] LABS: ACETONE, SERUM Small (20mg/dL) mg/dL (Negative)
[2018-08-11] MEDS ORDERED: INSULIN REGULAR 100 UNITS/ML, 3ML VIAL SQ-INSULIN ONE ×2 (00:30→03:00)
--- NOTE | 2018-08-11 00:30 | NUR ---
PT MEDICATED PER EMAR FOR TX OF BG. PT NOTED TO HAVE URINATED OVER SELF AND LINENS. LINENS CHANGED. PT CLEANED. NEW GOWN AND BLANKET PROVIDED.
--- NOTE | 2018-08-11 01:00 | NUR ---
PT MOVED TO T2 FOR ASSIGNMENT CHANGE. BP/SPO2/ECG MONITORING REMAIN IN PLACE.
--- NOTE | 2018-08-11 01:30 | NUR ---
FSBS RECHECKED. IMPROVEMENT IN BG NOTED. ERP AWARE. NO FURTHER ORDERS RECEIVED. PT TO BE MONITORED. AIRWAY REMAINS PATENT. EVEN/REGULAR RESPIRATIONS NOTED. SPO2 >90% ON 2L BY NC. NSR ON MONITOR.
--- NOTE | 2018-08-11 02:25 | NUR ---
PT CONTINUES TO REST IN GURNEY W/ EYES CLOSED. RESPIRATIONS EVEN/UNLABORED. SPO2>90% ON 2L BY NC. PT MOVING EXTREMITIES VOLUNTARILY. FSBS RECHECKED. PER ERP, CONTINUE Q1HR FS UNTIL FSBS IS BELOW 300. BEDSIDE REPORT TO ELIZABETH OCASIO
[2018-08-11] MEDS ORDERED: INSULIN SINGLE DOSE, ER SQ-INSULIN ONE (02:58)
--- NOTE | 2018-08-11 02:58 | NUR ---
GIVEN INSULIN [address] KWON PT IS STILL SLEEPING
--- NOTE | 2018-08-11 04:15 | NUR ---
FSBS @ [id number] ([id number]) PT IS STILL SLEEPING VSS
--- NOTE | 2018-08-11 05:19 | NUR ---
RECEIVED REPORT FROM ELIZABETH OCASIO TO ASSUME CARE OF PT. AT THIS TIME.
--- NOTE | 2018-08-11 05:35 | NUR ---
PT. WAS MOVED TO ED 40 FOR [place] MONITORING FOR EXTRA SAFETY. PT. SLEEPING BUT RESPONDS TO PAINFUL STIMULI. FSBS RECHECKED(231). CONTINUOUS PULSE OX, BP, AND HEART MONITORS IN PLACE. NSR NOTED ON MONITOR. PT. RESP EVEN, NON-LABORED. ALL SAFETY MEASURES OBSERVED.
--- NOTE | 2018-08-11 06:22 | NUR ---
PT. RESTING ON GURNEY WITH EYES CLOSED. VS UPDATED; ALL MONITORS REMAIN IN PLACE. EVEN NON-LABORED RESPIRATIONS NOTED. ALL SAFETY MEASURES OBSERVED. WILL CONTINUE TO MONITOR.
--- NOTE | 2018-08-11 07:00 | NUR ---
REPORT TO ELIZABETH PATEL TO ASSUME PT. CARE AT THIS TIME. PT. RESTING ON GURNEY WITH NADN. ALL MONIOTRS REMAIN IN PLACE. EVEN, NON-LABORED RESPIRATIONS NOTED. ALL SAFETY MEASURES MAINTAINED.
--- NOTE | 2018-08-11 07:05 | NUR ---
REC BS REPORT PT RESTING VSS NADN
[2018-08-11 08:05] VITALS: BP 142/78
== END 2018-08-11 08:10 | disposition home or self-care (01) ==
LOC: EDBD 22:04 → ED 08-11 04:15 → MERGE 08-11 04:23 → ED 08-11 04:23
DX: F10.129 Alcohol abuse with intoxication, unspecified (principal); E11.65 Type 2 diabetes mellitus with hyperglycemia; R41.82 Altered mental status, unspecified; R00.0 Tachycardia, unspecified; Y90.9 Presence of alcohol in blood, level not specified
CPT/HCPCS: 36415; 70450; 80053; 80307; 81001; 82010; 82140; 82803; 82962; 83930; 85025; 93005; 96372; 99284; J7030

== ENCOUNTER 2018-08-20 15:22 | Emergency (ER) | payer MEDICARE, MEDICAID ==
[~2018-08-20] VITALS: Ht 167.6 cm; Wt 80.0 kg
--- NOTE | 2018-08-20 16:09 | NUR ---
SEE TRIAGE NOTE. PT RESPONSIVE TO VOICE, OPENS EYES, SOME EXTREMITY MOVEMENT. PER EMS, PT AMBULATORY ON SCENE-NEEDING SOME ASSISTANCE. PT PLACED IN GOWN, PULSE OX IN PLACE. FINGERSTICK OBTAINED AFTER REVIEW OF PAST HX SHOWS DM. CALL LIGHT WITHIN REACH, AWAITING EKG AND CXR. Addendum: 08/20/18 at 1617 by JULIA ERP NOTIFIED OF BRUISE TO L FLANK/ABDOMEN.
[2018-08-20] MEDS ORDERED: SODIUM CHLORIDE FLUSH 10ML SYR IVF ONE (16:30)
[2018-08-20 16:40] LABS: BASOPHILS # (AUTO) 0.05 x10^3/uL (0-0.1); BASOPHILS % (AUTO) 1 % (0-1); EOSINOPHILS # (AUTO) 0.11 x10^3/uL (0-0.4); EOSINOPHILS % (AUTO) 3 % (1-7); LYMPHOCYTES # (AUTO) 1.34 x10^3/uL (1-3.4); LYMPHOCYTES % (AUTO) 36 % (22-44); MD NO; MEAN CORPUSCULAR HGB CONC 34.6 g/dL (33.2-36.2); MEAN CORPUSCULAR VOLUME 95.4 fL (81-97); MEAN PLATELET VOLUME 7.7 fL (7.4-10.4); MONOCYTES # (AUTO) 0.16 x10^3/uL (0.2-0.8); MONOCYTES % (AUTO) 4 % (2-9); NEUTROPHILS # (AUTO) 2.03 x10^3/uL (1.8-6.8); NEUTROPHILS % (AUTO) 55 % (42-75); PLATELET COUNT 110 x10^3/uL (130-400); RED BLOOD COUNT 4.02 x10^6/uL (4.38-5.82)
--- NOTE | 2018-08-20 16:46 | NUR ---
IV PLACED, LABS DRAWN. AWAITING CT. VSS/UPDATED IN COMPUTER.
[2018-08-20 16:50] LABS: ALBUMIN 3.5 g/dL (3.4-5.0); ANION GAP 14 mmol/L (5-15); CHLORIDE 101 mmol/L (98-107); CREATININE 0.74 mg/dL (0.7-1.3)
[2018-08-20] MEDS ORDERED: OMNIPAQUE 350 MG/ML, 100ML BOTTLE ONE (17:22)
--- NOTE | 2018-08-20 17:55 | NUR ---
PT UP AT BS, ATTEMPTING TO PULL DOWN PANTS. URINAL PROVIDED, PT WILL NOT FOLLOW COMMANDS, UNSTEADY ON FEET. PT UNABLE TO URINATE IN URINAL INITIALLY MISSING AND URINATING ON FLOOR. PT ASSISTED WITH URINAL AND GETTING BACK TO BED. ALL RESULTS BACK, PT TO BE DISCHARGED WHEN SOBER ENOUGH FOR SAFE DISCHARGE.
--- NOTE | 2018-08-20 19:00 | NUR ---
REPORT RECEIVED FROM KAYLEE DEAL
--- NOTE | 2018-08-20 19:10 | NUR ---
PT SLEEPING, NAD. REPORT TO ABEL JOHNSON, TRANSFER OF CARE AT THIS TIME.
--- NOTE | 2018-08-20 20:06 | NUR ---
PT STILL SLEEPING IN [facility]. BP/SPO2 MONITORS IN PLACE. CALL LIGHT WITHIN REACH.
--- NOTE | 2018-08-20 21:19 | NUR ---
PT SLEEPING IN [facility]. RESPS EVEN AND UNLABORED. BP/SPO2 MONITORS IN PLACE. CALL LIGHT WITHIN REACH.
--- NOTE | 2018-08-20 21:36 | NUR ---
PT UNSTEADY ON FEET STILL. PT IS NOT SAFE TO BE DISCHARGED AT THIS TIME.
[2018-08-20 23:02] VITALS: BP 123/80
--- NOTE | 2018-08-20 23:02 | NUR ---
PT SLEEPING IN [facility]. RESPS EVEN AND UNLABORED. BP/SPO2 MONITORS IN PLACE. CALL LIGHT WITHIN REACH.
--- NOTE | 2018-08-20 23:23 | NUR ---
PT GIVEN DC INSTRUCTIONS. PT WHEELED TO DC. PT'S AOX4. RESPS EVEN AND UNLABORED. NO ACUTE DISTRESS AT DC.
== END 2018-08-20 23:23 | disposition home or self-care (01) ==
LOC: ED 19:57
DX: F10.120 Alcohol abuse with intoxication, uncomplicated (principal); J45.909 Unspecified asthma, uncomplicated; E11.9 Type 2 diabetes mellitus without complications
CPT/HCPCS: 71045; 74177; 80048; 82040; 82962; 85025; 93005; 99284; Q9967